=== PATIENT | female | born 1990 | race Caucasian/White ===

== ENCOUNTER 2019-11-05 08:28 | Observation (INO) | payer MEDICAID ==
[~2019-11-05] VITALS: Ht 165.1 cm; Wt 73.5 kg
[2019-11-05 09:32] LABS: CLARITY URINE CLOUDY (CLEAR); COLOR URINE DARK YELLOW (YELLOW); KETONES URINE 3+ (NEGATIVE); LEUKOCYTE ESTERASE URINE 2+ (NEGATIVE); NITRITE URINE NEGATIVE (NEGATIVE); OCCULT BLOOD URINE 2+ (NEGATIVE); PROTEIN URINE TRACE (NEGATIVE); SPECIFIC GRAVITY URINE 1.024 (1.005-1.030)
[2019-11-05] MEDS ORDERED: PREN1TAB23 PO (10:30)
[2019-11-05] MEDS: LACTATED RINGERS 1,000 ML IV SCH ×2 (10:46→11:49)
== END 2019-11-05 13:15 | disposition home or self-care (01) ==
LOC: 8EST NSY 08:28 → 8 EST LDRP 09:04
PROVIDERS: ADMIT Obstetrics & Gynecology; ATTEND Obstetrics & Gynecology
DX: O46.93 Antepartum hemorrhage, unspecified, third trimester (principal); Z3A.37 37 weeks gestation of pregnancy; Z79.899 Other long term (current) drug therapy
CPT/HCPCS: 59025; 76815; 76818; 81003; 87086; 96360; 96361; G0378; J7120; 99281